=== PATIENT | female | born 1950 | race African-American/Black ===

== ENCOUNTER 2018-01-14 16:05 | Emergency (ER) | payer MEDICARE ==
[~2018-01-14] VITALS: Ht 170.2 cm; Wt 84.0 kg
[2018-01-14] MEDS ORDERED: AMLODIPINE 5MG TABLET PO ONE (17:15)
[2018-01-14] MEDS ORDERED: ACETAMINOPHEN 325MG TABLET PO ONE (17:15)
[2018-01-14 17:27] VITALS: BP 176/90
== END 2018-01-14 17:42 | disposition home or self-care (01) ==
LOC: ER 16:28
DX: S39.012A Strain of muscle, fascia and tendon of lower back, initial encounter (principal); S30.0XXA Contusion of lower back and pelvis, initial encounter; I10 Essential (primary) hypertension; Z88.0 Allergy status to penicillin; Z88.2 Allergy status to sulfonamides; Z96.652 Presence of left artificial knee joint; V49.9XXA Car occupant (driver) (passenger) injured in unspecified traffic accident, initial encounter; Y93.89 Activity, other specified; Y99.8 Other external cause status; Y92.481 Parking lot as the place of occurrence of the external cause
CPT/HCPCS: 99283